=== PATIENT | female | born 1970 | race Caucasian/White ===

== ENCOUNTER 2019-08-19 13:47 | Outpatient (CLI) | payer OTHER ==
--- NOTE | 2019-08-19 14:24 | MMO ---
Bilateral MAMMO Bilat Screen [facility]. CLINICAL HISTORY: Patient is 48 years old and is seen for diagnostic exam. The patient has the following family history of breast cancer: paternal grandmother, at age 65. The patient has no personal history of cancer. VIEWS: The views performed were: bilateral craniocaudal with tomosynthesis and bilateral mediolateral oblique with tomosynthesis. FILMS COMPARED: The present examination has been compared to prior imaging studies performed at [facility] on 08/30/2008, 02/23/2013 and 09/27/2016, and at [facility] on 12/30/2014. This study has been interpreted with the assistance of computer-aided detection. MAMMOGRAM FINDINGS: There are scattered fibroglandular densities. There are stable benign appearing calcifications seen in both breasts. There are no suspicious masses, suspicious calcifications, or new areas of architectural distortion. IMPRESSION: THERE IS NO MAMMOGRAPHIC EVIDENCE OF MALIGNANCY. A ROUTINE FOLLOW-UP MAMMOGRAM IN 1 YEAR IS RECOMMENDED. THE RESULTS OF THIS EXAM WERE SENT TO THE PATIENT. ACR BI-RADS Category 2 - Benign finding MAMMOGRAPHY NOTE: 1. A negative mammogram report should not delay a biopsy if a dominant of clinically suspicious mass is present. 2. Approximately 10% to 15% of breast cancers are not detected by mammography. 3. Adenosis and dense breasts may obscure an underlying neoplasm. Reported by: DOMINIQUE VILLEGAS MD Electonically Signed: [id number]
== END 2019-08-19 13:48 | disposition home or self-care (01) ==
LOC: BICMAMMO 13:47
PROVIDERS: ATTEND Physician Assistant
DX: Z12.31 Encounter for screening mammogram for malignant neoplasm of breast (principal); Z80.3 Family history of malignant neoplasm of breast
CPT/HCPCS: 77063; 77066; 77067; G0279

== ENCOUNTER 2019-11-13 13:28 | Outpatient (CLI) | payer OTHER ==
--- NOTE | 2019-11-13 16:00 | CT ---
CT ABDOMEN AND PELVIS WITHOUT CONTRAST: 11/13/19 PROVIDED CLINICAL HISTORY: Right sided abdominal pain. FINDINGS: Comparison is made with the study dated 12/10/16. The visualized lung bases are free of significant opacity. The solid abdominal organs are suboptimall y evaluated within the absence of IV contrast material. Bilateral renal hypodensities are redemonstra mirella, appearing stable. Calcifications associated with right renal hypodensity is redemonstrated. Ther e is no evidence for urinary tract calculi or hydronephrosis. The solid abdominal organs demonstrate an otherwise unremarkable unenhanced Ct appearance. Changes of prior cholecystectomy are seen. No bowel dilatation, inflammatory fat stranding, free fluid or lymph node enlargement apparent. The a ppendix appears normal. The osseous structures demonstrate no concerning lytic or blastic lesions. Vicky mbar spine degenerative changes are seen. IMPRESSION: No evidence for an acute process. POS: EZEKIEL
--- NOTE | 2019-11-18 10:19 | ULT ---
ULTRASOUND ABDOMEN AND BLADDER: 11/13/19 HISTORY: Renal mass. COMPARISON: CT abdomen and pelvis 11/13/19. FINDINGS: The visualized portions of the aorta, IVC and pancreas are unremarkable. Slight increased hepatic ech otexture. Portal vein is patent. Antegrade flow. The common bile duct is normal measuring 3 mm. Right kidney measures 9.8 x 4.7 x 4.3 cm with an endophytic 1.38 cm inferior pole cyst. No renal mass or hydronephrosis. Spleen is normal measuring 11.6 cm in length. The left kidney has a large superior pole 6.7 cm cyst, which is simple and echoic. The left kidney itself measures 13.4 x 6.5 x 5 cm. Urinary bladder is unr emarkable. IMPRESSION: 1. Simple cysts of the kidneys. 2. No renal mass, hydronephrosis or abnormal calcifications. 3. Mild increased hepatic echotexture can be seen with low grade steatosis.
== END 2019-11-13 13:29 | disposition home or self-care (01) ==
LOC: ULT 13:28
PROVIDERS: ATTEND Physician Assistant
DX: N28.89 Other specified disorders of kidney and ureter (principal); R19.7 Diarrhea, unspecified; N28.1 Cyst of kidney, acquired
CPT/HCPCS: 74176; 74177; 76856; 82565; 93975

== ENCOUNTER 2020-10-17 08:26 | Day surgery (SDC) | payer OTHER ==
[2020-10-17] MEDS ORDERED: Sodium Chloride 0.9% 20 ML ONE (08:49)
[2020-10-17] MEDS ORDERED: Cosyntropin 250 MCG VIAL SLOW IVP SCH (09:00)
[2020-10-17 09:07] VITALS: BP 164/83
== END 2020-10-17 11:22 | disposition home or self-care (01) ==
LOC: ONC/OP 08:26
PROVIDERS: ATTEND Internal Medicine Rheumatology
DX: M06.4 Inflammatory polyarthropathy (principal); Z88.0 Allergy status to penicillin
CPT/HCPCS: 36415; 80400; 82024; 96374; J0834

== ENCOUNTER 2020-10-26 15:56 | Outpatient (CLI) | payer OTHER | END 2020-10-26 15:57 | disposition home or self-care (01) | LOC: BICRAD 15:56 | PROVIDERS: ATTEND Internal Medicine Rheumatology | DX: M54.89 Other dorsalgia (principal) | CPT/HCPCS: 72202 ==

== ENCOUNTER 2021-08-31 07:37 | Outpatient (CLI) | payer OTHER | END 2021-08-31 07:38 | disposition home or self-care (01) | LOC: BICULT 07:37 | PROVIDERS: ATTEND Physician Assistant | DX: N28.89 Other specified disorders of kidney and ureter (principal); N28.1 Cyst of kidney, acquired | CPT/HCPCS: 76700 ==